=== PATIENT | male | born 1980 | race Caucasian/White ===

== ENCOUNTER 2019-04-25 18:45 | Outpatient (CLI) | payer OTHER ==
--- NOTE | 2019-04-27 00:43 | XRAY Report ---
Reason: NECK PAIN,ACUTE,LOW BACK PAIN,ACUTE Procedure Date: 04/25/2019 Accession Number: [id number] / [id number] Procedure: XR - Lumbar Spine 2 View CPT Code: FULL RESULT: EXAM: LUMBOSACRAL SPINE RADIOGRAPHY EXAM DATE: 04/25/2019 07:40 PM. CLINICAL HISTORY: Neck pain, acute and low back pain, acute. COMPARISONS: None. TECHNIQUE: 3 views. FINDINGS: Alignment: Mild dextroscoliosis centered at L3. Bones: Five [id number] lumbar vertebral bodies are present. No fractures or bone lesions. Disks: Normal. Disk heights are maintained. Facets: No degenerative changes. Sacroiliac Joints: Unremarkable. Soft Tissues: Post-cholecystectomy. The visualized bowel gas pattern is normal. IMPRESSION: 1. No acute abnormality seen in the lumbar spine. 2. Mild dextroscoliosis. [facility]
--- NOTE | 2019-04-27 00:43 | XRAY Report ---
Reason: NECK PAIN,ACUTE,LOW BACK PAIN,ACUTE Procedure Date: 04/25/2019 Accession Number: [id number] / [id number] Procedure: XR - Cervical Spine 2 View CPT Code: FULL RESULT: EXAM: CERVICAL SPINE RADIOGRAPHY EXAM DATE: 04/25/2019 07:40 PM. CLINICAL HISTORY: Neck pain, acute, and low back pain, acute. COMPARISONS: None. TECHNIQUE: 3 views. FINDINGS: Alignment: Normal. No spondylolisthesis or scoliosis. Bones: The cervical vertebral bodies and posterior elements are well visualized from the skull base through C7-T1. No fractures or bone lesions. Disks: Minimal C5-C6 disk height loss and osteophytosis. No other significant degenerative changes. Facets: No degenerative disease. Soft Tissues: Normal. No prevertebral soft tissue swelling. The visualized lung apices are clear. IMPRESSION: Minimal C5-C6 disk level degenerative changes without acute abnormality seen. [facility]
== END 2019-04-25 18:46 | disposition home or self-care (01) ==
LOC: DI 18:45
PROVIDERS: ATTEND Physician Assistant Medical
DX: M50.322 Other cervical disc degeneration at C5-C6 level (principal); M41.9 Scoliosis, unspecified
CPT/HCPCS: 72040; 72100

== ENCOUNTER 2024-06-28 20:03 | Emergency (ER) | payer BC, OTHER ==
--- NOTE | 2024-06-28 20:56 | XRAY Report ---
PROCEDURE: Shoulder 2+V RT INDICATIONS: pain TECHNIQUE: 3 views of the shoulder were acquired. COMPARISON: None. FINDINGS: Bones: No fractures or dislocations. No suspicious bony lesions. Visualized ribs appear intact. Soft tissues: A tiny curvilinear calcification adjacent to the greater tuberosity. The visualized clarissa ngs are within normal limits. IMPRESSION: No acute fracture, dislocation, or separation. Findings suggest calcific tendinitis. Reviewed by: Ruth Rodriguez MD on 06/28/2024 8:55 PM PDT Approved by: Ruth Rodriguez MD on 06/28/2024 8:55 PM PDT Station ID: [id number]
--- NOTE | 2024-06-28 21:15 | ED Physician Documentation ---
PD HPI UPPER EXT INJURY - Stated complaint Stated Complaint: RT SHOULDER INJ - Chief complaint Chief Complaint: Trauma Ext - History obtained from History obtained from: Patient - Additonal information Additional information: HPI from patient. Patient complains of sudden onset of right shoulder pain earlier tonight while he was bowling. The pain is distinctly worse with movement. He denies numbness, weakness. Patient says he has had similar pain in the right shoulder in the past although not as severe as tonight. He also says that the previous pains he is had in his right shoulder were also associated with bowling as he was going to bowl the ball. PD PAST MEDICAL HISTORY - Past Medical History Past Medical History: Yes - Past Surgical History Past Surgical History: Yes General: Cholecystectomy - Allergies Allergies/Adverse Reactions: Allergies Allergy/AdvReac Type Severity Reaction Status Date / Time No Known Drug Allergies Allergy Verified 06/28/24 20:06 - Social History Does the pt smoke?: No Smoking Status: Never smoker Does the pt drink ETOH?: Yes Does the pt have substance abuse?: No - Immunizations Immunizations are current?: Yes - POLST Patient has POLST: No PD ED PE NORMAL - Vitals Vital signs reviewed: Yes - General General: Alert and oriented X 3, No acute distress, Well developed/nourished - Extremities Extremities: No deformity, No tenderness to palpate PD ED PE EXPANDED - Extremities Extremities: Limited ROM (limited abduction, flexion, extension of right shoulder due to exacerbation of pain with these motions) Results - Vitals Vitals: Vital Signs - 24 hr 06/28/24 06/28/24 20:06 21:33 Temperature 36.8 C 36.5 C Heart Rate 86 72 Respiratory 16 18 Rate Blood Pressure 157/96 H 141/82 H O2 Saturation 99 100 Oxygen O2 Source Room air - Rads (name of study) right shoulder xrays Relevant Findings:: Prelim report reviewed, See rad report PD Medical Decision Making - ED course Complexity details: reviewed results, considered differential, d/w patient ED course: Right shoulder xrays interpreted by radiologist as "a tiny curvilinear calcifi cation adjacent to the greater tuberosity", "findings suggest calcific tendinitis", "no acute fracture, dislocation, or separation." Results discussed with patient. He is placed in a right arm sling with instructions to use this during the day for the next 7 to 10 days but to do range of motion exercises 2 or 3 times each day. Furthermore, I advised him to contact his orthopedic surgeon to arrange the next available point for reevaluation; as it is, he tells me he is seeing the orthopedic surgeon because of his recurrent right shoulder pain. We discussed options for analgesia which he declines, saying he will take ibuprofen when he gets home. Departure - Departure Disposition: Home, Self Care Clinical Impression: Shoulder tendinitis Qualifiers: Laterality: right Qualified Code(s): M77.8 - Other enthesopathies, not elsewhere classified Condition: Good Instructions: ED Tendinitis Calcific Comments: The only abnormality on tonight's x-rays is a small stripe of calcium adjacent to the outer aspect of your right shoulder. As we discussed, the radiologist's interpretation of these x-rays is this finding likely represents calcific tendinitis; within these discharge instructions are a review of this diagnosis along with the prognosis. Contact your orthopedic surgeon in the morning when the office opens to arrange for the next available appointment for follow- up/reevaluation. I recommend that you use the sling during the day for the next 7 to 10 days. It is important that you take your arm out of the sling 2 or 3 times per day and do gentle range of motion exercises. Discharge Date/Time: 06/28/24 21:38
[2024-06-28 21:42] VITALS: BP 141/82; O2SAT 100
== END 2024-06-28 21:38 | disposition home or self-care (01) ==
LOC: ED 20:03
DX: M77.8 Other enthesopathies, not elsewhere classified (principal)
CPT/HCPCS: 99283